=== PATIENT | male | born 1940 | race Caucasian/White ===

== ENCOUNTER → 2018-03-26 | Day surgery (SDC) | payer MEDICARE ==
[~2018-03-26] VITALS: Ht 177.8 cm; Wt 79.4 kg
[~2018-03-26] MED LIST: ASA81 MG PO; BREO INH; BUDESONIDE HHN; LIDOCAINE 1% W/EPINEPHRINE 20 ML VIAL ONE; LOSARTAN POTASS25 MG PO; METOPROLOL SUCC25 MG PO; METOPROLOL TART25 MG PO; PROTONIX40 MG PO; SYMBICORT 16010.2 GM INH; Z PROPAFENONE PO; Z.0.ALTACE5 MG PO; Z.0.PRAVASTATIN SOD2 PO; [UNRECOGNIZED DRUG - OTHER] HHN; [UNRECOGNIZED DRUG - OTHER] PO
--- NOTE | 2018-03-28 13:00 | Operative Report ---
DATE OF PROCEDURE: INDICATIONS: Palpitations. PROCEDURE PERFORMED: Insertable loop recorder. Left anterior chest wall was anesthetized using subcutaneous lidocaine. A Indigiotronic LINQ was inserted without complications. Skin approximated using Dermabond. Patient discharged home same day without any complications. Job#: [id number] MORENA
== END | disposition home or self-care (01) ==
LOC: CATH LAB 07:26
PROVIDERS: ATTEND Internal Medicine Interventional Cardiology
DX: I47.1 Supraventricular tachycardia (principal); I25.10 Atherosclerotic heart disease of native coronary artery without angina pectoris; I10 Essential (primary) hypertension; Z88.0 Allergy status to penicillin
CPT/HCPCS: 33282; C1764

== ENCOUNTER → 2019-02-04 | Day surgery (SDC) | payer MEDICARE ==
[2019-02-01 14:50] LABS: BASOPHILS # (AUTO) 0.1 (0.0-0.1); BASOPHILS % 1.4 % (0.0-1.0); EOSINOPHILS # (AUTO) 0.2 (0.0-0.4); EOSINOPHILS % 2.9 % (0.0-6.0); HEMATOCRIT 34.4 % (38.2-49.6); HEMOGLOBIN 10.7 g/dL (14.0-18.0); LYMPHOCYTES # (AUTO) 1.1 (1.0-3.2); LYMPHOCYTES % 21.4 % (18.0-39.1); MEAN CORPUSCULAR HEMOGLOBIN 27.6 pg (28-32); MEAN CORPUSCULAR HGB CONC 31.1 g/dL (31-35); MEAN CORPUSCULAR VOLUME 88.9 fL (81-99); MONOCYTES # (AUTO) 0.6 (0.2-0.8); NEUTROPHILS # (AUTO) 3.2 (2.1-6.9); NEUTROPHILS % 62.1 % (38.7-80.0); PLATELET COUNT 194 x10e3/uL (140-360); RED BLOOD COUNT 3.87 x10e6/uL (4.3-5.7); RED CELL DISTRIBUTION WIDTH 17.8 % (11.7-14.4)
[~2019-02-04] MED LIST changes: +ASPIR 8181 MG PO; +FENTANYL CITRATE/PF 100MCG/2 ML INJ ONE; +FERROUS SULFAT325 MG PO; +HYOSCYAMINE SULFATE 0.5 MG/ML INJ ONE; -LIDOCAINE 1% W/EPINEPHRINE 20 ML VIAL ONE; +MIDAZOLAM HCL 2 MG/2 ML VIAL ONE; +PROPOFOL IV EMULSION 10 MG/ML 50 ML VIAL ONE; +TRAZODONE HCL50 MG PO; +VITAMIN D400 UNIT PO
[2019-02-04 13:25] VITALS: BP 119/70
--- NOTE | 2019-02-04 19:09 | Operative Report ---
DATE OF PROCEDURE: 02/04/2019 SURGEON: Owen Tyson MD PROCEDURES: Esophagogastroduodenoscopy with esophageal dilatation and biopsies and colonoscopy with polypectomy. INDICATIONS FOR EGD: Dysphagia. INDICATIONS FOR COLONOSCOPY: Iron deficiency anemia, history of colon polyps. MEDICATIONS: The patient was done under MAC, please see anesthesiologist's note. PROCEDURE IN DETAIL: With the patient in left lateral decubitus position, flexible fiberoptic Olympus gastroscope was introduced into the esophagus under direct visualization without any difficulty. There was a stricture noted at the GE junction, it was traversed with gentle persistent pressure by the scope and it was subsequently dilated to size 44-Mohawk Stack. The scope was then advanced with ease into the stomach. Mucosa overlying the antrum and the body revealed some patchy areas of erythema, low-grade edema and biopsies were obtained and sent to stain for H pylori. Pylorus was intubated with ease and the scope was advanced all the way to the second portion of the duodenum. Biopsies were obtained from the proximal second portion and duodenal bulb to rule out sprue considering patient's history of iron deficiency. The scope was then withdrawn back into the stomach and retroflexed. Mucosa overlying the fundus and cardia appeared to be within normal limits. The scope was then straightened out, it was subsequently withdrawn. The patient tolerated the procedure well. IMPRESSION: 1. Normal esophagus. 2. 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 3. Gastritis, biopsied. Biopsies sent to stain for Helicobacter pylori. 4. Rule out sprue. PLAN: Follow up histology. Continue Protonix 40 mg one p.o. a.c. b.i.d. PROCEDURE IN DETAIL: The patient will need a repeat EGD with esophageal dilatation in 2 to 3 weeks. The patient was then turned around after adequate lubrication of the anal canal, a flexible fiberoptic Olympus colonoscope was inserted into the rectum with ease and advanced all the way to the cecum. Mucosa overlying the cecum appeared to be within normal limits. Two minute polyps were hot biopsied from the proximal ascending colon. The rest of the ascending, transverse, descending, sigmoid, and rectum appeared to be within normal limits. The scope was then retroflexed into the distal rectum and moderate-sized internal hemorrhoids were noted none of which was actively bleeding. The scope was then straightened out, it was subsequently withdrawn. The patient tolerated the procedure well. IMPRESSION: 1. Ascending colon polyps x2, minute, hot biopsied. 2. Internal hemorrhoids, none actively bleeding. PLAN: Follow up histology. Initiate high-fiber, low-fat diet. Initiate high-fiber supplement. Findings in the colon did not explain the patient's iron deficiency anemia. A small bowel series is in order. If negative, then an enteroscopy will be carried out. Owen Tyson MD [facility] [place] [place] [place] /[id number] cc: Santos Gamez MD
== END | disposition home or self-care (01) ==
LOC: OR 08:31
PROVIDERS: ATTEND Internal Medicine Gastroenterology
DX: K22.2 Esophageal obstruction (principal); D12.2 Benign neoplasm of ascending colon; K29.70 Gastritis, unspecified, without bleeding; K31.9 Disease of stomach and duodenum, unspecified; K21.9 Gastro-esophageal reflux disease without esophagitis; K64.8 Other hemorrhoids; D50.9 Iron deficiency anemia, unspecified; J44.9 Chronic obstructive pulmonary disease, unspecified; I10 Essential (primary) hypertension; Z88.0 Allergy status to penicillin; Z01.810 Encounter for preprocedural cardiovascular examination; Z01.812 Encounter for preprocedural laboratory examination; Z79.82 Long term (current) use of aspirin; Z87.891 Personal history of nicotine dependence
CPT/HCPCS: 36415; 43239; 43450; 45384; 85025; 88305; 88313; 93005; J1980; J2250; J2704; 45378; 88312

== ENCOUNTER 2019-02-26 13:10 | Emergency (ER) | payer MEDICARE ==
[~2019-02-26] VITALS: Ht 177.8 cm; Wt 79.4 kg
[~2019-02-26 13:10] MED LIST changes: -FENTANYL CITRATE/PF 100MCG/2 ML INJ ONE; -HYOSCYAMINE SULFATE 0.5 MG/ML INJ ONE; -MIDAZOLAM HCL 2 MG/2 ML VIAL ONE; -PROPOFOL IV EMULSION 10 MG/ML 50 ML VIAL ONE
[2019-02-26] MEDS ORDERED: HYDROCODONE/APAP 7.5MG-325MG 1 EA TAB PO PRN (13:30)
--- NOTE | 2019-02-26 15:42 | Diagnostic Imaging Report ---
Exam: Left elbow radiographs-3 views History: Status post fall. Comparison: None. Findings: No evidence of acute fracture or malalignment. No evidence of joint effusion. There is soft tissue edema overlying the olecranon process. Impression: Soft tissue edema overlying the olecranon process without evidence of acute fracture or malalignment. Signed by: Dr. Erica Reddy MD on 02/26/2019 3:39 PM
--- NOTE | 2019-02-26 15:50 | Diagnostic Imaging Report ---
EXAMINATION: RIBS UNILAT W/CXR INDICATION: Status post fall with left-sided rib pain. COMPARISON: None FINDINGS: TUBES and LINES: None. LUNGS: Lungs are well inflated. There is no evidence of pneumonia or pulmonary edema. PLEURA: No pleural effusion or pneumothorax. HEART AND MEDIASTINUM: The cardiomediastinal silhouette is unremarkable. There are atherosclerotic calcifications within the aorta. There is a cardiac loop recorder. BONES AND SOFT TISSUES: There are mildly displaced left posterior lateral fifth and sixth rib fractures. Possible nondisplaced left posterolateral fourth rib fracture. UPPER ABDOMEN: No free air under the diaphragm. IMPRESSION: Mildly displaced left posterolateral fifth and sixth rib fractures. Possible nondisplaced left posterolateral fourth rib fracture. No evidence of pneumothorax. Signed by: Dr. Erica Reddy MD on 02/26/2019 3:46 PM
[2019-02-26] MEDS ORDERED: TETANUS/DIPHTHERIA TOX ADULT 0.5 ML SYR IM ONE (16:00)
--- NOTE | 2019-02-26 19:24 | NUR ---
PT BROUGHT BACK INTO TRIAGE FOR VITALS AND DISCHARGE.
--- NOTE | 2019-02-26 19:26 | NUR ---
INCENTIVE SPIROMETER GIVEN TO PT.
[2019-02-26] MEDS ORDERED: TETANUS/DIPHTHERIA TOX ADULT 0.5 ML SYR IM NR (19:30)
== END 2019-02-26 20:04 | disposition home or self-care (01) ==
LOC: ER 13:10
DX: S22.42XA Multiple fractures of ribs, left side, initial encounter for closed fracture (principal); S20.212A Contusion of left front wall of thorax, initial encounter; S40.011A Contusion of right shoulder, initial encounter; S50.02XA Contusion of left elbow, initial encounter; S50.312A Abrasion of left elbow, initial encounter; W01.0XXA Fall on same level from slipping, tripping and stumbling without subsequent striking against object, initial encounter; Y92.488 Other paved roadways as the place of occurrence of the external cause
CPT/HCPCS: 71101; 90714; 99283

== ENCOUNTER 2019-03-02 14:48 | Emergency (ER) | payer MEDICARE ==
[~2019-03-02] VITALS: Ht 177.8 cm; Wt 79.4 kg
--- OUTSIDE RECORDS SUMMARY | 2019-03-02 14:51 | XMS REPORT ---
[facility] Address Unknown Phone Unavailable Care Team Providers Care Preparer Making Department Name Role Phone ARENNATHALIE Deana SOLORZANO Unavailable Unavailable Problems This patient has no known problems. Allergies, Adverse Reactions, Alerts This patient has no known allergies or adverse reactions. Medications This patient has no known medications. Results Test Description Test Time Test Comments Text Results Atomic Results Result Comments RIBS UNILAT W/CXR 2019-02-26 15:39:00 [facility] [address] [address] Patient Name: RAUL HUI MR #: [id number] : 1940 Age/Sex: 78/M Req #: [id number] Adm Physician: Ordered by: KEANU HERRERA SUPERVISOR FERTILIZER Report #: [id number] Location: ER Room/Bed: Procedure: [id number] DX/RIBS UNILAT W/CXR Exam Date: 02/26/19 Exam Time: 1450 REPORT STATUS: Signed EXAMINATION: RIBS UNILAT W/CXR INDICATION: Status post fall with left-sided rib pain. COMPARISON: None FINDINGS: TUBES and LINES: None. LUNGS: Lungs are well inflated. There is no evidence of pneumonia or pulmonary edema. PLEURA: No pleural effusion or pneumothorax. HEART AND MEDIASTINUM: The cardiomediastinal silhouette is unremarkable. There are atherosclerotic calcifications within the aorta. There is a cardiac loop recorder. BONES AND SOFT TISSUES: There are mildly displaced left posterior lateral fifth and sixth rib fractures. Possible nondisplaced left posterolateral fourth rib fracture. UPPER ABDOMEN: No free air under the diaphragm. IMPRESSION: Mildly displaced left posterolateral fifth and sixth rib fractures. Possible nondisplaced left posterolateral fourth rib fracture. No evidence of pneumothorax. Signed by: Dr. Yanelis Cain MD on 02/26/2019 3:46 PM Dictated By: YANELIS CAIN MD 1546 Transcribed By: ASA on 02/26/19 1546 COPY TO: KEANU HERRERA SUPERVISOR FERTILIZER ELBOW LEFT COMPLETE 2019-02-26 15:35:00 [address] [address] Patient Name: RAUL HUI MR #: [id number] : 1940 Age/Sex: 78/M Req #: [id number] Adm Physician: Ordered by: KEANU HERRERA SUPERVISOR FERTILIZER Report #: [id number] Location: ER Room/Bed: Procedure: [id number] DX/ELBOW LEFT COMPLETE Exam Date: 02/26/19 Exam Time: 1437 REPORT STATUS: Signed Exam: Left elbow radiographs-3 views History: Stat us post fall. Comparison: None. Findings: No evidence of acute fracture or malalignment. No evidence of joint effusion. There is soft tissue edema overlying the olecranon process. Impression: Soft tissue edema overlying the olecranon process without evidence of acute fracture or malalignment. Signed by: Dr. Yanelis Cian MD on 02/26/2019 3:39 PM Dictated By: YANELIS CAIN MD 1539 Transcribed By: ASA on 02/26/19 1539 COPY TO: KEANU HERRERA SUPERVISOR FERTILIZER
--- NOTE | 2019-03-02 16:41 | Diagnostic Imaging Report ---
EXAM: Abdomen 1 Views INDICATION: ^Constipation after taking pain medication COMPARISON: None FINDINGS: Mild amount of stool in the colon. Air in small bowel and colon. No dilated loops of small bowel. No renal calculi. No abnormal soft tissue masses. Moderate degenerative changes in the lumbar spine and pelvis. Severe at L5-S1. IMPRESSION: Gas within small bowel loops and colon without distention. No significant amount of stool. Signed by: Dr. Rivas Guillen M.D. on 03/02/2019 4:38 PM
[2019-03-02 17:17] LABS: BASOPHILS % 0.5 % (0.0-1.0); EOSINOPHILS # (AUTO) 0.2 (0.0-0.4); EOSINOPHILS % 2.2 % (0.0-6.0); HEMATOCRIT 30.9 % (38.2-49.6); HEMOGLOBIN 10.5 g/dL (14.0-18.0); LYMPHOCYTES % 13.6 % (18.0-39.1); MEAN CORPUSCULAR HEMOGLOBIN 29.2 pg (28-32); MEAN CORPUSCULAR VOLUME 85.8 fL (81-99); MONOCYTES # (AUTO) 0.9 (0.2-0.8); MONOCYTES % 11.8 % (4.4-11.3); NEUTROPHILS # (AUTO) 5.2 (2.1-6.9); NEUTROPHILS % 71.6 % (38.7-80.0); PLATELET COUNT 185 x10e3/uL (140-360); RED CELL DISTRIBUTION WIDTH 16.2 % (11.7-14.4)
[2019-03-02 17:21] LABS: CLARITY,URINE HAZY (CLEAR); COLOR,URINE YELLOW (YELLOW); KETONES,URINE 1+ (NEGATIVE); LEUKOCYTE ESTERASE ,URINE NEGATIVE (NEGATIVE); NITRITE,URINE NEGATIVE (NEGATIVE); PROTEIN,URINE DIPSTICK NEGATIVE (NEGATIVE); URINE UROBILINOGEN 0.2 mg/dL (0.2 - 1)
[2019-03-02 17:22] LABS: BILIRUBIN,URINE NEGATIVE (NEGATIVE)
[2019-03-02 17:24] LABS: BACTERIA,URINE FEW /HPF; EPITHELIAL CELLS,URINE FEW /LPF; RBC,URINE 0-5 /HPF (0-5); WBC,URINE (MAN) 0-5 /HPF (0-5)
[2019-03-02 17:27] LABS: INR 1.01; PROTHROMBIN TIME 13.8 seconds (11.9-14.5)
[2019-03-02 17:28] LABS: PARTIAL THROMBOPLASTIN TIME 35.2 seconds (23.8-35.5)
[2019-03-02 17:36] LABS: ALANINE AMINOTRANSFERASE 12 IU/L (0-55); ALBUMIN 3.6 g/dL (3.5-5.0); ALBUMIN/GLOBULIN RATIO 1.3 (0.8-2.0); ALKALINE PHOSPHATASE 59 IU/L (40-150); ANION GAP 11.7 mmol/L (8-16); BLOOD UREA NITROGEN 9 mg/dL (7-26); BUN/CREATININE RATIO 10 (6-25); CALCIUM 9.3 mg/dL (8.4-10.2); CARBON DIOXIDE 27 mmol/L (22-29); CHLORIDE 100 mmol/L (98-107); CREATININE, SERUM 0.91 mg/dL (0.72-1.25); EST GLOMERULAR FILTRATION RATE > 60 ML/MIN (60-); GLUCOSE 98 mg/dL (74-118); POTASSIUM 3.7 mmol/L (3.5-5.1); SODIUM 135 mmol/L (136-145)
[2019-03-02] MEDS ORDERED: IOPAMIDOL 370 MG/ML 200 ML INFUS..BTL INJ ONE (18:11)
[2019-03-02] MEDS ORDERED: SODIUM CHLORIDE 0.9% 50ML 50 ML ONE (18:11)
--- NOTE | 2019-03-02 19:14 | Diagnostic Imaging Report ---
EXAM: CT Abdomen and Pelvis WITH contrast INDICATION: ^rule out obstruction. Constipation. COMPARISON: KUB 03/02/2019. TECHNIQUE: Abdomen and pelvis were scanned utilizing a multidetector helical scanner from the lung base to the pubic symphysis after administration of IV contrast. Coronal and sagittal reformations were obtained. Routine protocol was performed. Scan was performed when during portal venous phase. IV CONTRAST: 100 mL of Isovue 370 ORAL CONTRAST: Water COMPLICATIONS: None RADIATION DOSE: Total DLP: 380.15 mGy*cm Estimated effective dose: (DLP x 0.015 x size factor) mSv CTDIvol has been reviewed. It is below the limits set by the Radiation Protocol Committee (RPC). Dose modulation, iterative reconstruction, and/or weight based adjustment of the mA/kV was utilized to reduce the radiation dose to as low as reasonably achievable. FINDINGS: LINES and TUBES: None. LOWER THORAX: Trace left pleural effusion with mild atelectasis. Emphysematous changes in the lung bases. HEPATOBILIARY: The liver is diffuse hypodense compared to the spleen, consistent with diffuse hepatic diffuse hepatic steatosis. No focal hepatic lesions. No biliary ductal dilation. GALLBLADDER: No radio-opaque stones or sludge. No wall thickening. SPLEEN: No splenomegaly. PANCREAS: No focal masses or ductal dilatation. ADRENALS: No adrenal nodules KIDNEYS/URETERS: Kidneys enhance symmetrically. No hydronephrosis. There are scattered too small to characterize hypodensities, likely benign. 0.1 cm stone in the lower pole of the right kidney. GI TRACT: Moderate amount stool in the colon, areas and demonstrates fatty density. No evidence of constipation. Surgical clips around the cecum, possibly related to prior appendectomy. No abnormal distention, wall thickening, or evidence of bowel obstruction. PELVIC ORGANS/BLADDER: Prostate measures 5.7 cm in transverse dimension. Bladder is normal in appearance. LYMPH NODES: No lymphadenopathy. VESSELS: There is severe atherosclerotic disease in the aorta and major arterial branches. PERITONEUM / RETROPERITONEUM: No free air or fluid. BONES: Mild degenerative changes at L4-L5. Moderate at L5-S1 with disc space narrowing and posterior disc osteophyte. SOFT TISSUES: Small fat-containing left hernia. IMPRESSION: 1. Moderate amount of stool in the colon. No evidence of constipation. No small bowel obstruction. 2. Mild diffuse hepatic steatosis. 3. 0.1 cm nonobstructing right renal stone. Signed by: Dr. Rivas Guillen M.D. on 03/02/2019 7:10 PM
[2019-03-02 19:59] LABS: AMYLASE 26 U/L (25-125); LIPASE 21 U/L (8-78)
== END 2019-03-02 21:14 | disposition home or self-care (01) ==
LOC: ER 14:48
DX: K59.00 Constipation, unspecified (principal); I10 Essential (primary) hypertension; E78.5 Hyperlipidemia, unspecified; D64.9 Anemia, unspecified
CPT/HCPCS: 36415; 74018; 74177; 80053; 81001; 82150; 83690; 85025; 85610; 85730; 99284; Q9967

== ENCOUNTER → 2025-07-28 | Outpatient (REF) | payer MEDICARE | LOC: RAD 14:51 | PROVIDERS: ATTEND Internal Medicine Critical Care Medicine | DX: J44.9 Chronic obstructive pulmonary disease, unspecified (principal) | CPT/HCPCS: 71046 ==